=== PATIENT | female | born 1950 | race Caucasian/White ===

== ENCOUNTER 2022-12-16 10:08 | Emergency (ER) | payer OTHER ==
[~2022-12-16] VITALS: Ht 152.4 cm; Wt 97.1 kg
[~2022-12-16 10:08] MED LIST: COZAAR50 MG PO; DILANTIN100 MG PO; LASIX20 MG PO; SYMAX0.125 MG/T PO; TENORMIN25 MG PO; TESSALON PERLE100 M1 PO; TUSSI PRES-B L120 M1 PO; ZITHROMAX TRI-500 MG PO
[2022-12-16] MEDS ORDERED: TUSSIN DM SYRU118 ML PO (13:00)
[2022-12-16] MEDS ORDERED: ZITHROMAX TRI-500 MG PO (13:00)
== END 2022-12-16 13:09 | disposition home or self-care (01) ==
LOC: ER 10:08
DX: J06.9 Acute upper respiratory infection, unspecified (principal); B34.9 Viral infection, unspecified; Z88.5 Allergy status to narcotic agent; Z85.3 Personal history of malignant neoplasm of breast; Z20.822 Contact with and (suspected) exposure to COVID-19

== ENCOUNTER 2023-10-25 10:45 | Emergency (ER) | payer OTHER ==
[~2023-10-25] VITALS: Ht 167.6 cm; Wt 86.2 kg
[~2023-10-25 10:45] MED LIST changes: +TUSSIN DM SYRU118 ML PO
[2023-10-25 12:24] LABS: HEMATOCRIT 41.6 % (36.0-45.00); HEMOGLOBIN 14.2 g/dL (12.0-15.00); MEAN CELL VOLUME 89.8 fL (80.00-100.00); MEAN CORPUSCULAR HEMOGLOBIN 30.6 pg (27.00-32.0); MEAN CORPUSCULAR HGB CONC 34.1 g/dl (32.0-36.0); PLATELET COUNT 183 K/uL (150-450); RED BLOOD COUNT 4.64 M/uL (4.00-6.00); RED CELL DISTRIBUTION WIDTH 13.9 % (11.5-14.5)
== END 2023-10-25 14:25 | disposition home or self-care (01) ==
LOC: ER 10:45
PROVIDERS: General Practice
DX: R05.9 Cough, unspecified (principal); I10 Essential (primary) hypertension; Z88.8 Allergy status to other drugs, medicaments and biological substances; Z85.3 Personal history of malignant neoplasm of breast; Z20.822 Contact with and (suspected) exposure to COVID-19